=== PATIENT | male | born 1995 | race Caucasian/White ===

== ENCOUNTER 2021-02-21 21:03 | Emergency (ER) | payer OTHER ==
[~2021-02-21] VITALS: Ht 175.3 cm; Wt 63.5 kg
[2021-02-21 21:09] VITALS: BP 147/74
[2021-02-21] MEDS ORDERED: DECADRON ONE (21:14)
--- NOTE | 2021-02-21 21:17 | ER.PDOC ---
General Chief Complaint: Allergic Reaction Stated Complaint: WASP STING Time seen by MD: 21:05 Source: patient Exam Limitations: no limitations History of Present Illness Initial Comments This is a 25-year-old male who was stung by a wasp on his upper lip about 5 hours ago. Since that time he has developed edema of the entire upper lip and also the bilateral cheek areas. He is not having any shortness of breath or airway problems. There is no difficulty swallowing.There is no generalized rash and he did not have syncope. Allergies: Coded Allergies: No Known Allergies (Unverified , 12/18/14) Past Medical History Medical History: no pertinent history Surgical History: appendectomy Social History Smoking: non-smoker Alcohol Use: none Drug Use: none Review of Systems Constitutional: denies chills, denies fever Eyes: denies blurred vision, denies inflammation Ears: denies pain, denies tinnitus Nose: denies clots, denies epistaxis Mouth: denies loose teeth, denies pain Throat: denies swelling, denies hoarse, denies muffled Respiratory: denies cough, denies shortness of breath, denies wheezing Cardiovascular: denies chest pain, denies syncope Gastrointestinal: denies abdominal pain, denies vomiting Genitourinary: denies dysuria, denies hematuria Musculoskeletal: denies back pain, denies joint pain Skin: denies lesions, denies rash Psychiatric/Neurological: denies anxiety, denies depressed Physical Exam General Appearance: alert, no distress Neuro/Vascular/Tendon: no vascular compromise, sensation nml, oriented x3, nml ROM, CN's nml as tested Psych: mood/affect nml HEENT: PERRL, eye lids/conjun nml, other (There is edema of the entire upper lip and also edema of the bilateral zygomatic areas. The tongue and pharynx are normal. The patient's phonation is normal and there is no stridor) Neck: nml inspection Resp/CVS: breath sounds nml, heart sounds nml, reg. rate & rhythm Abdomen: nml inspection, non-tender Back: nml inspection Extremities: nml inspection Results/Orders Results/Orders Orders - FERNANDO PARR MD Dexamethasone Sodium Phosphate (Decadron (02/21/21 21:12) Dexamethasone Sodium Phosphate (Decadron (02/21/21 21:14) Vital Signs Date Time Temp Pulse Resp B/P (MAP) Pulse Ox O2 Delivery O2 Flow Rate FiO2 02/21/21 21:09 98.5 102 16 02/21/21 21:09 98.5 102 16 98 02/21/21 21:09 98.5 102 16 147/74 (98) 98 Room Air ER DEPART Departure Time of Disposition: 21:16 Disposition: 01 HOME / SELF CARE / HOMELESS Impression: Primary Impression: Wasp sting Condition: Stable Patient Instructions: Bee, Wasp, or Hornet Sting Referrals: PCP,UNKNOWN (PCP) PRIMARY CARE PROVIDER Duration or Time Spent with Pa: 5 FERNANDO PARR MD Feb 21, 2021 21:17
[2021-02-21] MEDS: DECADRON IM STA (21:20)
== END 2021-02-21 21:28 | disposition home or self-care (01) ==
LOC: ER 21:03
DX: T63.461A Toxic effect of venom of wasps, accidental (unintentional), initial encounter (principal); Y92.89 Other specified places as the place of occurrence of the external cause
CPT/HCPCS: 96372; 99283; J1100

== ENCOUNTER 2022-10-08 16:52 | Emergency (ER) | payer SELFPAY ==
[~2022-10-08] VITALS: Ht 167.6 cm; Wt 68.0 kg
[2022-10-08 16:52] VITALS: BP 140/94
--- NOTE | 2022-10-08 16:52 | NUR ---
ARRIVAL PT ARRIVED AMBULATORY TO ED 5 WITH C/O A LAC ON HIS LEFT INDEX FINGER AFTER CUTTING IT ON A RAZOR BLADE AROUND 1100 TODAY. VITALS TAKEN AND NOTIFIED.
[2022-10-08] MEDS ORDERED: BOOSTRIX IM ONE ×2 (17:30→17:33)
--- NOTE | 2022-10-08 17:34 | ER.PDOC ---
General Chief Complaint: Extremities Stated Complaint: LEFT INDEX FINGER LAC Time seen by MD: 17:27 Source: patient Exam Limitations: no limitations History of Present Illness Initial Comments Laceration of left index finger this afternoon. Occurred: this afternoon Where: home Severity: moderate Context: laceration Allergies: Coded Allergies: No Known Allergies (Unverified , 12/18/14) Past Medical History Medical History: no pertinent history Surgical History: appendectomy Social History Alcohol Use: none Drug Use: none Review of Systems Constitutional: no symptoms reported EENTM: no symptoms reported Respiratory: no symptoms reported Cardiovascular: no symptoms reported Musculoskeletal: see HPI Skin: see HPI All Other Systems: Reviewed and Negative Physical Exam General Appearance: Alert, No Apparent Distress Hand: see diagram Wrist: nml inspection, non-tender, nml ROM 1 - Lac Neuro: sensation nml, motor nml Vascular: no vascular compromise Tendons: tendon function nml Forearm/Elbow/Arm: uninjured above wrist Head/ENT: nml inspection, pharynx nml Neck/Back: nml inspection, non-tender Resp/CVS: no resp distress, lungs clear, heart sounds nml, reg. rate & rhythm Abdomen: non-tender, no organomegaly ED LACERATION WOUND REPAIR # of Wounds/Lacerations Presen: 1 Wound Location & Length (Requi: Left index finger Wound Length (cm): 4 Wound cleaned: betadine Anesthesia: 1% Lidocaine Volume Anesthetic (ccs): 5 Wound's Depth, Shape: irregular Irrigated w/ Saline (ccs): 20 Wound Repaired With: sutures Suture Style: interupted Number of Sutures: 7 Sterile Dressing Applied?: Yes Results/Orders Results/Orders Orders - LULY LOZOYA MD Diph,Pertuss(Acell),Tet Vac/Pf (Boostrix (10/08/22 17:30) Vital Signs Date Time Temp Pulse Resp B/P (MAP) Pulse Ox O2 Delivery O2 Flow Rate FiO2 10/08/22 16:52 98.9 125 18 140/94 (109) 98 Room Air* 0 21 10/08/22 16:52 98.9 125 18 10/08/22 16:52 98.9 125 18 98 10/08/22 16:52 98.9 125 18 140/94 (109) 98 Room Air* 0 21 Progress Progress Patient received a Tetanus shot. ER DEPART Departure Time of Disposition: 17:44 Disposition: 01 HOME / SELF CARE / HOMELESS Impression: Primary Impression: Laceration of finger of left hand Condition: Improved Referrals: PCP,UNKNOWN (PCP) PRIMARY CARE PROVIDER Additional Instructions: Keflex Apply Neosporin daily Remove sutures in 8 days either PCP or ED Return to ED sooner if any concerns Duration or Time Spent with Pa: 10 min Problem Qualifiers Primary Impression: Laceration of finger of left hand Encounter type: initial encounter Finger: index finger Damage to nail status: without damage Foreign body presence: without foreign body Qualified Codes: S61.211A - Laceration without foreign body of left index finger without damage to nail, initial encounter LULY LOZOYA MD Oct 08, 2022 17:34
[2022-10-08 18:00] VITALS: BP 140/94
== END 2022-10-08 18:02 | disposition home or self-care (01) ==
LOC: ER 16:52
DX: S61.211A Laceration without foreign body of left index finger without damage to nail, initial encounter (principal); Z90.49 Acquired absence of other specified parts of digestive tract; X58.XXXA Exposure to other specified factors, initial encounter; Y93.89 Activity, other specified; Y92.89 Other specified places as the place of occurrence of the external cause; Y99.8 Other external cause status
CPT/HCPCS: 12002; 90471; 90715; 99283